=== PATIENT | female | born 1940 | race Caucasian/White ===

== ENCOUNTER 2020-04-30 22:12 | Inpatient (IN) ==
--- NOTE | 2020-04-30 22:36 | ERNOTE ---
Neuro HPI ER Record Presenting Symptoms: weakness, confusion Time Seen by Provider: 04/30/20 22:12 Source: EMS Exam Limitations: clinical condition Immunizations: IMMUNIZATION HX Immunizations Up to Date Yes History of Influenza Vaccine Yes Hx Pneumococcal Vaccination Yes Allergies/Adverse Reactions: Allergies Allergy/AdvReac Type Severity Reaction Status Date / Time levofloxacin [From Levaquin] Allergy Mild Nausea, Verified 04/30/20 22:28 Dizziness, Lightheadedness moxifloxacin HCl Allergy Mild Nausea, Verified 04/30/20 22:28 [From Avelox] Dizziness acetaminophen Allergy Verified 04/30/20 22:28 [From Darvocet-N] amoxicillin [From Augmentin] Allergy Verified 04/30/20 22:28 clavulanic acid Allergy Verified 04/30/20 22:28 [From Augmentin] fructose Allergy Verified 04/30/20 22:28 lactose Allergy Verified 04/30/20 22:28 oxycodone Allergy Verified 04/30/20 22:28 propoxyphene Allergy Verified 04/30/20 22:28 [From Darvocet-N] doxycycline AdvReac Unknown "felt Verified 04/30/20 22:28 loopy" Home Medications: HOME MEDICATIONS Calcium Carbonate/Vitamin D3 [Calcium 500 + D Tablet] 1 ea PO DAILY 06/03/12 [Last Taken Unknown] Multivitamin with Minerals [Multiple Vitamin] 1 ea PO DAILY 06/03/12 [Last Taken Unknown] acetaminophen 325 mg tablet 325 mg PO Q6H PRN 05/17/18 [Last Taken Unknown] etanercept 50 mg/mL (1 mL) subcutaneous syringe 50 mg SUBCUT QWEEK 05/17/18 [Last Taken Unknown] folic acid 1 mg tablet 1 mg PO DAILY 05/17/18 [Last Taken Unknown] methotrexate sodium 2.5 mg tablet 20 mg PO QWEEK tab 05/17/18 [Last Taken Unknown] alendronate 70 mg tablet 70 mg PO QWEEK 09/07/18 [Last Taken Unknown] levothyroxine 125 mcg tablet 125 mcg PO DAILY #90 tab 08/14/19 [Last Taken Unknown] trazodone 150 mg tablet 150 mg PO HS #90 tab 09/20/19 [Last Taken Unknown] lisinopril 20 mg-hydrochlorothiazide 25 mg tablet 1 tab PO DAILY #90 tab 04/08/20 [Last Taken Unknown] albuterol sulfate 90 mcg/actuation aerosol inhaler 2 puff IH Q4H PRN #8.5 g 04/15/20 [Last Taken Unknown] fluticasone propionate 50 mcg/actuation nasal spray,suspension 2 spray LEDY DAILY #16 g 04/15/20 [Last Taken Unknown] trospium 60 mg capsule,extended release 24 hr 60 mg PO DAILY 04/15/20 [Last Taken Unknown] Cefuroxime Axetil [Cefuroxime] 500 mg PO BID #10 tab 04/26/20 [Last Taken Unknown] - History of Present Illness Narrative: Patient brought in by EMS due to report of decreased responsiveness at home. Patient's states he saw her just before she went to bed around 1900 tonight and she was normal. Around 2100 she did come downstairs and was having difficulty with her right arm and dropped some medicine due to not being able to stop attacher with her right arm. She went back upstairs and he got worried, he tried to wake her and could not get any response. He called his daughter who encouraged him to call EMS. Upon arrival EMS was only able to get her to open her eyes and no other response. Onset: upon waking Severity: severe - Character of Deficits New weakness: Present: RUE, RLE Altered sensation: Present: RUE Additional Deficits: Present: impaired speech Baseline Cognition: Present: alert, oriented x 4 Baseline Gait: Present: walks w/o assistance Review of Systems - Narrative Narrative: ROS limited due to patient's mental status and did not come to the hospital - Review of Systems Constitutional: Present: recent illness - Covid Neurological: Present: See HPI Medical History (Last Reviewed 04/30/20 @ 22:27 by Gamaliel Cosme DO) Hernia Vertigo GERD (gastroesophageal reflux disease) Onset Date: Unknown Hypertension Onset Date: Unknown Hypothyroidism Onset Date: Unknown 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 RLS (restless legs syndrome) Onset Date: Unknown Rheumatoid arthritis Onset Date: ~07/17/15 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 Lateral meniscus tear Onset Date: ~06/06/12 right Medial meniscus tear Onset Date: ~06/06/12 right Surgical History: Surgical History (Last Reviewed 04/30/20 @ 22:28 by Gamaliel Cosme DO) History of arthroscopic surgery of shoulder Onset Date: ~2010 right History of colonoscopy Onset Date: ~2008 [facility]- normal History of total bilateral knee replacement (TKR) Onset Date: ~2012 History of tubal ligation Onset Date: ~07/17/15 Family History: Family History (Last Reviewed 04/30/20 @ 22:28 by Gamaliel Cosme DO) Mother Hypertension Hypothyroidism CVA (cerebral vascular accident) Cancer vaginal Social History: (Last Reviewed 04/30/20 @ 22:28 by Gamaleil Cosme DO) Social History: Marital status: household members: spouse Service: No Tobacco: Smoking Status: Never smoker Alcohol: alcohol intake: never Substance Use: substance use type: does not use Dietary Habits: caffeine: Yes Type: coffee Physical Exam - Physical Exam General Appearance: Present: wd/wn, lethargic Eye Exam: Normal inspection: bilateral, PERRL: bilateral, EOMI: bilateral Ears, Nose, Throat: Present: normal ENT inspection Neck: Present: normal inspection, nontender Respiratory: Present: no respiratory distress, normal breath sounds, no accessory muscle use Cardiovascular/Chest: Present: regular rate, rhythm, no murmur Gastrointestinal/Abdominal: Present: normal bowel sounds, nontender, nondistended, soft Extremity Exam: Present: normal inspection, no edema Neurological Exam: Present: other - Patient will open eyes to verbal stimuli. Patient will wiggle left toes and stop attacher left hand. Otherwise does respond to strong stimuli to right foot but does not respond to painful stimuli in right upper extremity Skin Exam: Present: normal color, warm/dry Lymphatic Exam: Present: no adenopathy Zeenat Coma Scale - Assess Eye Opening: To Voice Motor: Obeys Commands Verbal: None - Total Coma Scale Total: 10 Initial Stroke Assessment - Date/Time of assessment Stroke Scale Date: 04/30/20 Stroke Scale Time: 22:30 - NIH Stroke Scale Level of Consciousness: Drowsy LOC Questions (Year and Age): Answers neither correctly LOC Commands (open/close eyes/fist): Performs both correctly Lateral Gaze Paresis: None Visual Field Loss: No visual loss Facial Palsy: Normal movement Right Arm Motor (10 sec hold): No effort, limb falls Left Arm Motor (10 sec hold): No drift Right Leg Motor (5 sec hold): No effort, limb falls Left Leg Motor (5 sec hold): No drift Limb Ataxia (finger/nose heel/mendoza): Untestable Sensory Loss (pinprick arms/legs/face): Severe to total loss Language Aphasia (description/naming/reading): Mute, global aphasia Dysarthria (speech clarity): Untestable Neglect Inattention (visual/tactile/auditory/spatial/person): No neglect Initial Stroke Scale Score:: 14 - Stroke Risk Assessment Stroke Risk Assessment Level: 15-20 Severe Impairment Stroke Inclusion/Exclusion Cri - Inclusion Questions: Yes Onset of symptoms <3 1/2 hours of admission to ETC: No - Exclusion Questions: Major symptoms rapidly improving: No Seizure at onset of stroke: No SBP>185; DBP>110 at time treatment is to begin: No Patient received Heparin or Coumadin within 48 hours: No Patient has elevated PTT or Protime/INR: No - Total NIHSS Score Score:: 14 Progress - Results and Orders Patient's Lab Results:: I have reviewed the patient's lab results. - Vital Signs Patient's Vital Signs:: I have reviewed the patient's vital signs. - EKG EKG #1 EKG: NSR EKG read: Interp. by me - X-Ray X-Ray #1 X-Ray: chest Interpretation: Interp. by me X-ray Comments: Patchy infiltrates throughout bilateral lungs right greater than left - CT/Ultrasound CT/Ultrasound Narrative: CT head without contrast. No evidence of acute intracranial abnormality. - Progress/Reassessment Progress:: Improved Progress Note-Subjective: 04/30/20 23:11 Patient is improving now moving all extremities although weak on the right upper extremity. Patient is now talking and has given her birthdate and 's name. 05/01/20 00:[address] Gutierrez he agrees with admission for Covid pneumonia and anticoagulation due to elevated D-dimer. Departure Clinical Impression: Pneumonia due to 2019-nCoV - Departure Disposition: Still a patient Condition: Good
[2020-04-30 22:52] LABS: Hematocrit 31.2 % (37.0-47.0); Hemoglobin 10.1 gm/dL (12.5-16.0); Mean Cell Volume 96.3 fl (78-100); Mean Corpuscular Hemoglobin 31.2 pg (27-31); Mean Corpuscular Hgb Conc 32.4 g/dl (32-36); Mean Platelet Volume 8.7 fl (8-12.5); Platelet Count 235 K/mm3 (150-450); Red Blood Count 3.24 M/mm3 (4.2-5.4); Red Cell Distribution Width 13.9 % (11.5-14.0)
[2020-04-30 22:57] LABS: Total Cells Counted 100
[2020-04-30 23:04] LABS: Prothrombin Time (Patient) 10.7 Seconds (9.1-10.7)
[2020-04-30 23:06] LABS: Albumin * 2.6 gm/dl (3.4-5.0); Anion Gap 14.5 mmol/L (6.8-13.8); Atypical (Reactive) Lymph 6 % (0-2); BUN/Creatinine Ratio 18.2 (9.0-21.6); Bilirubin, Total 0.6 mg/dL (0.0-1.1); Ca. Corrected For Albumin 9.2 mg/dL (8.4-10.2); Calcium * 8.4 mg/dL (7.9-10.9); Carbon Dioxide 23.7 mmol/L (24-32.6); Eosinophil 1 % (0-3); Lymphocyte 8 % (20-51); Monocyte 3 % (0-9); Neutrophil 82 % (42-75); Neutrophil # 7.4 K/mm3 (1.3-6.0); Platelet Estimate Normal (NORMAL); Potassium 3.2 mmol/L (3.4-4.6); RBC Morphology Normal (NORMAL); Total Protein 7.2 gm/dL (6.2-8.2)
[2020-04-30 23:07] LABS: INR 1.08 INR (0.92-1.08); Partial Thrombolplastin Time 22.6 Seconds (24-32)
[2020-05-01] MEDS ORDERED: ENOXAPARIN SODIUM 100 MG/ML SYRG SC SCH (01:00)
[2020-05-01] MEDS: DEXAMETHASONE SODIUM PHOSPHATE 4 MG/ML VIAL IV SCH (11:17)
[2020-05-01] MEDS ORDERED: ENOXAPARIN SODIUM 80 MG/0.8 ML DISP.SYRIN SC SCH (13:00)
[2020-05-01] MEDS: ENOXAPARIN SODIUM 60 MG/0.6 ML SYRG SC SCH (14:06)
[2020-05-01] MEDS ORDERED: ALBUTEROL SULFATE 200 PUFF INHALER IH PRN (17:26)
[2020-05-01] MEDS ORDERED: ACETAMINOPHEN 325 MG TABLET PO PRN (17:26)
--- NOTE | 2020-05-01 17:26 | HP ---
Chief Complaint - Chief Complaint Date of Service: 05/01/20 Time of Service: 17:26 History of Present Illness: Patient presents to the ER via EMS with right side weakness and altered. She also was recently diagnosed with covid 19 roughtly a week ago. She has been quarantined since dx. CT brain was unremarkable. Pt had significantly elevated d-dimer at >10. SHe endorses right side weakness, difficulty with answering questions, slurred speech. This improved significantly in the ER. She was started on lovenox and decadron. She was requiring low flow o2 via NC to maintain sats. She was admitted for what was thought to be TIA and covid 19 PNA. CTA of chest not ordered due to minimal respiratory symptoms. Rest of her labs were stable and she was afebrile. She was admitted as inpatient. When examined today, she had significant right sided weakness. Left sided facial droop (mild). She had mild expressive aphasia and was having difficulty answering questions. Lovenox was held and she was sent to get an MRI of her brain which came back showing multiple small focal areas of ischemia in left cerebral hemisphere concerning for embolic events. This matched her clinical picture. Lovenox restarted. PT and OT ordered. Allowing for permissive HTN. She is not on a statin or ASA. 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 Lateral meniscus tear Onset Date: ~06/06/12 right Medial meniscus tear Onset Date: ~06/06/12 right Surgical History: Surgical History (Last Reviewed 04/30/20 @ 22:28 by Gamaliel Cosme DO) History of arthroscopic surgery of shoulder Onset Date: ~2010 right History of colonoscopy Onset Date: ~2008 [facility]- normal History of total bilateral knee replacement (TKR) Onset Date: ~2012 History of tubal ligation Onset Date: ~07/17/15 Family History: Family History (Last Reviewed 04/30/20 @ 22:28 by Julia Bradford RN) Mother Cancer vaginal CVA (cerebral vascular accident) Hypothyroidism Hypertension Social History: (Last Reviewed 04/30/20 @ 22:28 by Julia Bradford RN) Social History: Marital status: household members: spouse Service: No Tobacco: Smoking Status: Never smoker Alcohol: alcohol intake: never Substance Use: substance use type: does not use Dietary Habits: caffeine: Yes Type: coffee Review Of Systems (GEN) - Review of Systems Generalized/Overall Review: Present: Weakness. Absent: Chills, Fever EENTM: Present: No Symptoms Reported. Absent: Blurred Vision, Double Vision Respiratory: Present: Cough, Shortness of Breath Cardiac: Present: No Symptoms Reported Abdominal: Absent: Nausea, Vomiting, Abdominal Pain Genitourinary: Present: No Symptoms Reported Musculoskeletal: Present: No Symptoms Reported Neurological: Present: Weakness. Absent: Headache, Numbness Skin: Present: No Symptoms Reported Endocrine: Present: No Symptoms Reported Immunizations: IMMUNIZATION HX Immunizations Up to Date unk History of Influenza Vaccine More Information Required Hx Pneumococcal Vaccination More Information Required Allergies/Adverse Reactions: Allergies Allergy/AdvReac Type Severity Reaction Status Date / Time levofloxacin [From Levaquin] Allergy Mild Nausea, Verified 04/30/20 22:28 Dizziness, Lightheadedness moxifloxacin HCl Allergy Mild Nausea, Verified 04/30/20 22:28 [From Avelox] Dizziness acetaminophen Allergy Verified 04/30/20 22:28 [From Darvocet-N] amoxicillin [From Augmentin] Allergy Verified 04/30/20 22:28 clavulanic acid Allergy Verified 04/30/20 22:28 [From Augmentin] fructose Allergy Verified 04/30/20 22:28 lactose Allergy Verified 04/30/20 22:28 oxycodone Allergy Verified 04/30/20 22:28 propoxyphene Allergy Verified 04/30/20 22:28 [From Darvocet-N] doxycycline AdvReac Unknown "felt Verified 04/30/20 22:28 loopy" Home Medications: HOME MEDICATIONS Calcium Carbonate/Vitamin D3 [Calcium 500 + D Tablet] 1 ea PO DAILY 06/03/12 [Last Taken Unknown] Multivitamin with Minerals [Multiple Vitamin] 1 ea PO DAILY 06/03/12 [Last Taken Unknown] acetaminophen 325 mg tablet 325 mg PO Q6H PRN 05/17/18 [Last Taken Unknown] etanercept 50 mg/mL (1 mL) subcutaneous syringe 50 mg SUBCUT QWEEK 05/17/18 [Last Taken Unknown] folic acid 1 mg tablet 1 mg PO DAILY 05/17/18 [Last Taken Unknown] methotrexate sodium 2.5 mg tablet 20 mg PO QWEEK tab 05/17/18 [Last Taken Unknown] alendronate 70 mg tablet 70 mg PO QWEEK 09/07/18 [Last Taken Unknown] levothyroxine 125 mcg tablet 125 mcg PO DAILY #90 tab 08/14/19 [Last Taken Unknown] trazodone 150 mg tablet 150 mg PO HS #90 tab 09/20/19 [Last Taken Unknown] lisinopril 20 mg-hydrochlorothiazide 25 mg tablet 1 tab PO DAILY #90 tab 04/08/20 [Last Taken Unknown] albuterol sulfate 90 mcg/actuation aerosol inhaler 2 puff IH Q4H PRN #8.5 g 04/15/20 [Last Taken Unknown] fluticasone propionate 50 mcg/actuation nasal spray,suspension 2 spray LEDY DAILY #16 g 04/15/20 [Last Taken Unknown] trospium 60 mg capsule,extended release 24 hr 60 mg PO DAILY 04/15/20 [Last Taken Unknown] Cefuroxime Axetil [Cefuroxime] 500 mg PO BID #10 tab 04/26/20 [Last Taken Unknown] Exam - Exam Vital Signs: Vital Signs - Last Taken Temp 37.2 C 05/01/20 14:34 Pulse 69 05/01/20 14:34 Resp 16 05/01/20 14:34 BP 156/96 H 05/01/20 14:34 Pulse Ox 93 05/01/20 14:34 Constitutional: Present: Alert, Cooperative, Elderly. Absent: Oriented x3 - X1 ( to person) Eye Exam: bilateral eye: normal inspection, PERRL, abnormal EOM - poor tracking, horizontal nystagmus Neck: Present: non-tender, supple Respiratory: Present: lungs clear, normal breath sounds Cardiovascular/Chest: Present: regular rate, rhythm, no murmur Peripheral Pulses: carotid (R): 2+, carotid (L): 2+, dorsalis-pedis (R): 2+, dorsalis-pedis (L): 2+ Abdomen: Present: soft, nontender, nondistended Neurologic: Present: alert, aphasia, facial droop - left, mild, motor weakness - right upper extremity 3+/5 compared to the left including insurance professional 3+ dorsal flexion RLE +babinski on right. Absent: oriented x 3 Appearance: Present: impaired insight Diagnostic Studies: Abnormal Lab Results 04/30/20 04/30/20 04/30/20 Range/Units 22:48 22:48 22:48 RBC 3.24 L (4.2-5.4) M/mm3 Hgb 10.1 L (12.5-16.0) gm/dL Hct 31.2 L (37.0-47.0) % MCH 31.2 H (27-31) pg Neutrophils % (Manual) 82 H (42-75) % Lymphocytes % (Manual) 8 L (20-51) % Neutrophils # (Manual) 7.4 H (1.3-6.0) K/mm3 Lymphocytes # (Manual) 0.7 L (1.5-3.5) k/mm3 Atypic/Reactive Lymphs 6 H (0-2) % ESR 117 H (0-15) mm/hr PTT ([place]) 22.6 L (24-32) Seconds D-Dimer (0.19-0.49) ug/mL Potassium (3.4-4.6) mmol/L Carbon Dioxide (24-32.6) mmol/L Anion Gap (6.8-13.8) mmol/L Random Glucose (70-110) mg/dL Albumin (3.4-5.0) gm/dl 04/30/20 04/30/20 Range/Units 22:48 22:48 RBC (4.2-5.4) M/mm3 Hgb (12.5-16.0) gm/dL Hct (37.0-47.0) % MCH (27-31) pg Neutrophils % (Manual) (42-75) % Lymphocytes % (Manual) (20-51) % Neutrophils # (Manual) (1.3-6.0) K/mm3 Lymphocytes # (Manual) (1.5-3.5) k/mm3 Atypic/Reactive Lymphs (0-2) % ESR (0-15) mm/hr PTT ([place]) (24-32) Seconds D-Dimer Greater than 10 H (0.19-0.49) ug/mL Potassium 3.2 L (3.4-4.6) mmol/L Carbon Dioxide 23.7 L (24-32.6) mmol/L Anion Gap 14.5 H (6.8-13.8) mmol/L Random Glucose 114 H (70-110) mg/dL Albumin 2.6 L (3.4-5.0) gm/dl Laboratory Results WBC 9.0 K/mm3 (4.0-10.5) 04/30/20 22:48 RBC 3.24 M/mm3 (4.2-5.4) L 04/30/20 22:48 Hgb 10.1 gm/dL (12.5-16.0) L 04/30/20 22:48 Hct 31.2 % (37.0-47.0) L 04/30/20 22:48 MCV 96.3 fl (78-100) 04/30/20 22:48 MCH 31.2 pg (27-31) H 04/30/20 22:48 MCHC 32.4 g/dl (32-36) 04/30/20 22:48 RDW 13.9 % (11.5-14.0) 04/30/20 22:48 Plt Count 235 K/mm3 (150-450) 04/30/20 22:48 MPV 8.7 fl (8-12.5) 04/30/20 22:48 Neutrophils % (Manual) 82 % (42-75) H 04/30/20 22:48 Lymphocytes % (Manual) 8 % (20-51) L 04/30/20 22:48 Monocytes % (Manual) 3 % (0-9) 04/30/20 22:48 Eosinophils % (Manual) 1 % (0-3) 04/30/20 22:48 Neutrophils # (Manual) 7.4 K/mm3 (1.3-6.0) H 04/30/20 22:48 Lymphocytes # (Manual) 0.7 k/mm3 (1.5-3.5) L 04/30/20 22:48 Monocytes # (Manual) 0.3 k/mm3 (0.0-1.0) 04/30/20 22:48 Eosinophils # (Manual) 0.1 k/mm3 (0.0-0.7) 04/30/20 22:48 Atypic/Reactive Lymphs 6 % (0-2) H 04/30/20 22:48 Platelet Estimate Normal (NORMAL) 04/30/20 22:48 RBC Morphology Normal (NORMAL) 04/30/20 22:48 ESR 117 mm/hr (0-15) H 04/30/20 22:48 PT 10.7 Seconds (9.1-10.7) 04/30/20 22:48 INR (Anticoag Therapy) 1.08 INR (0.92-1.08) 04/30/20 22:48 PTT ([place]) 22.6 Seconds (24-32) L 04/30/20 22:48 D-Dimer Greater than 10 ug/mL (0.19-0.49) H 04/30/20 22:48 Sodium 138 mmol/L (132-142) 04/30/20 22:48 Plasma Sodium 138 mmol/L (130-142) 04/30/20 22:48 Potassium 3.2 mmol/L (3.4-4.6) L 04/30/20 22:48 Chloride 103 mmol/L (97-106) 04/30/20 22:48 Carbon Dioxide 23.7 mmol/L (24-32.6) L 04/30/20 22:48 Anion Gap 14.5 mmol/L (6.8-13.8) H 04/30/20 22:48 BUN 14 mg/dL (3-23) 04/30/20 22:48 Creatinine 0.77 mg/dL (0.4-1.4) 04/30/20 22:48 Est GFR (Non-Af Amer) 77 mL/min (60-130) D 04/30/20 22:48 BUN/Creatinine Ratio 18.2 (9.0-21.6) 04/30/20 22:48 Random Glucose 114 mg/dL (70-110) H 04/30/20 22:48 Calcium 8.4 mg/dL (7.9-10.9) 04/30/20 22:48 Calcium Adj for Albumin 9.2 mg/dL (8.4-10.2) 04/30/20 22:48 Total Bilirubin 0.6 mg/dL (0.0-1.1) 04/30/20 22:48 AST 41 U/L (0-48) 04/30/20 22:48 ALT 36 U/L (19-67) 04/30/20 22:48 Alkaline Phosphatase 67 U/L (50-170) 04/30/20 22:48 Total Protein 7.2 gm/dL (6.2-8.2) 04/30/20 22:48 Albumin 2.6 gm/dl (3.4-5.0) L 04/30/20 22:48 Assessment/Plan - Assessment/Plan (1) CVA (cerebral vascular accident) 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 Patient started on ASA, Statin, is on lovenox. ST, OT, PT ordered. Will advance diet as cleared. Carrotid and echo will be ordered once stable. Will allow for permissive HTN (systolic to be less than 200). Problem: Acute (2) Pneumonia due to 2019-nCoV Assessment: Minmal o2 requirements. will monitor. decadron started. on lovenox. respiratory stable Problem: Acute (3) HTN (hypertension) Assessment: holding htn meds Problem: Acute (4) Hypothyroid Problem: Acute (5) Rheumatoid arthritis Problem: Acute (6) GERD (gastroesophageal reflux disease) Problem: Acute
[2020-05-01] MEDS: LEVOTHYROXINE SODIUM 125 MCG TABLET PO SCH (18:33)
[2020-05-01] MEDS: CEFUROXIME AXETIL 500 MG TABLET PO SCH (20:35)
[2020-05-01] MEDS: traZODone HCL 150 MG TABLET PO SCH (20:35)
[2020-05-02] MEDS: ENOXAPARIN SODIUM 60 MG/0.6 ML SYRG SC SCH ×2 (02:54→14:20)
[2020-05-02] MEDS: LEVOTHYROXINE SODIUM 125 MCG TABLET PO SCH (07:10)
[2020-05-02] MEDS ORDERED: TROSPIUM 60 MG PO SCH (09:00)
[2020-05-02] MEDS ORDERED: FOLIC ACID 1 MG TABLET PO SCH (09:00)
[2020-05-02] MEDS ORDERED: ASPIRIN 325 MG TABLET.DR PO SCH (09:00)
[2020-05-02] MEDS: CEFUROXIME AXETIL 500 MG TABLET PO SCH ×2 (10:13→21:10)
[2020-05-02] MEDS: DEXAMETHASONE SODIUM PHOSPHATE 4 MG/ML VIAL IV SCH (10:20)
[2020-05-02] MEDS ORDERED: POTASSIUM CHLORIDE 20 MEQ TABLET.SA PO ONE (17:03)
--- NOTE | 2020-05-02 17:25 | PN ---
Subjective - Date and Time Seen Date: 05/02/20 Time: 17:15 Subjective Narrative: Elizabeth is much more alert and oriented today, much more conversant. She still has significant weakness in the right side but much improved compared to the day prior. Right upper extremity strength 3+/5, right lower extremity strength 3+/5. Better control of motion though. She denies pain or headache. She denies shortness of breath. She still has mild expressive aphasia and mild dy sarthria. Her vital signs been stable. Carotid ultrasound showed less than percent plaque buildup bilaterally. Echocardiogram completed but results not back yet. Objective - Review of Systems Generalized/Overall Review: Reports: Weakness. Denies: Chills, Fever EENTM: Denies: Blurred Vision, Double Vision Respiratory: Denies: Cough, Shortness of Breath Cardiac: Denies: Chest Pain, Palpitations Abdominal: Denies: Nausea, Vomiting Musculoskeletal Complaints: Denies: Joint Pain, Back Pain Neurological: Reports: Weakness. Denies: Numbness, Pre-existing Deficit - Vitals Vitals: Last Vital Signs Temp 36.7 C 05/02/20 15:57 Pulse 65 05/02/20 15:57 Resp 16 05/02/20 15:57 BP 116/64 05/02/20 15:57 Pulse Ox 100 05/02/20 15:57 - Exam Constitutional: Present: Alert, Cooperative, Elderly. Absent: Oriented x3 - X2 ENT Exam: Present: hearing grossly normal, other - horizontal nystagmus Neck: Present: non-tender, supple Respiratory: Present: lungs clear, normal breath sounds Cardiovascular/Chest: Present: regular rate, rhythm, no murmur Abdomen: Present: soft, nontender, nondistended Extremity: Present: normal range of motion, non-tender Skin Exam: Present: normal color, warm/dry Neurologic: Present: normal mood/affect, aphasia, facial droop - left sided, motor weakness - Right sided weakness, + babinski Eye contact: Present: cooperative. Absent: normal speech - mild dysrthria, improving Assessment/Plan - Problems/Diagnosis (1) CVA (cerebral vascular accident) Problem: Acute Narrative: Patient has made some progress today compared to yesterday. Patient more conversant and is pleasant to speak with. She does have some mild expressive aphasia and mild dysarthria. She still has significant right-sided weakness and poor rn eligibility strength. She is currently on Lovenox, aspirin, high intensity statin. Carotid Doppler showed less than 50% occlusion bilaterally. Echocardiogram taken today but results are nonacute. Plan is for patient to go to inpatient rehab tomorrow morning. 45 minutes critical care time spent today with patient including reviewing labs, reviewing test ordered, and work on treatment plan. (2) Pneumonia due to 2019-nCoV Problem: Acute Narrative: Patient is stable, vital signs are stable. She is not requiring oxygen administration to maintain sats. No shortness of breath and lungs sound clear on exam. (3) HTN (hypertension) Problem: Acute Narrative: Still holding blood pressure meds lower blood pressures been fine. Will resume at 48 hours if her pressure elevates. (4) Hypothyroid Problem: Acute (5) Rheumatoid arthritis Problem: Acute (6) GERD (gastroesophageal reflux disease) Problem: Acute
[2020-05-02] MEDS ORDERED: ROSUVASTATIN CALCIUM 20 MG TABLET PO SCH (21:00)
[2020-05-02] MEDS: traZODone HCL 150 MG TABLET PO SCH (21:12)
[2020-05-03] MEDS: ENOXAPARIN SODIUM 60 MG/0.6 ML SYRG SC SCH (02:09)
[2020-05-03] MEDS: LEVOTHYROXINE SODIUM 125 MCG TABLET PO SCH (06:42)
[2020-05-03 07:11] LABS: BUN/Creatinine Ratio 23.3 (9.0-21.6); Calcium * 8.3 mg/dL (7.9-10.9); Carbon Dioxide 23.4 mmol/L (24-32.6); Estimated Creat Clear 58.1; Potassium 3.4 mmol/L (3.4-4.6)
--- NOTE | 2020-05-03 08:42 | DS ---
(1) CVA (cerebral vascular accident) Problem: Acute Qualifiers: CVA mechanism: embolism Laterality of affected vessel: left (2) Pneumonia due to 2019-nCoV Problem: Acute (3) HTN (hypertension) Problem: Chronic (4) Hypothyroid Problem: Chronic (5) Rheumatoid arthritis Problem: Chronic (6) GERD (gastroesophageal reflux disease) Problem: Chronic Date of Discharge:: 05/03/20 Hospital Course: 79-year-old female with history of rheumatoid arthritis, hypertension, GERD, hypothyroidism was admitted to the hospital after developing right-sided weakness and difficulty speaking. Patient was previously diagnosed with COVID- 19 roughly 1 week prior to her admission. In the ER she was found to have a D- dimer greater than 10. She was started on Lovenox at a therapeutic dose twice daily. She is also on Decadron. Brain MRI showed multiple small embolic events in her left temporal region, again likely due to her Covid infection. She was started on high-dose statin and aspirin as well. 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 She was confused initially, alert and oriented x1 but this improved throughout her stay. Her strength and coordination is also mildly improved on the right side but she is still 3+/5 in both her upper and lower extremities. 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 She was found on positive Babinski on the right. She still has mild left-sided facial droop. She was much more conversant and oriented today than she was initially upon her admission. Carotid Doppler showed less than 50% occlusion bilaterally. Echocardiogram obtained of her heart but the results were not back yet, will forward to rehab facility once they are available. Her hypertensive medications have been held to allow for permissive hypertension if needed though she has remained within the normal range while being off them. Would not restart them at this time due to her CVA as well as her ranges are within normal limits. We will make sure that they are listed in her drug list in case she becomes hypertensive while at rehab, can be restarted by admitting physician there as they see fit. We will continue her Lovenox but likely will need to be started on Coumadin for another anticoagulant. Patient was evaluated by speech, physical, and occupational therapy while here. She currently is on a thickened, mechanical soft diet. Patient will need physical therapy, Occupational Therapy, and speech therapy continue to inpatient rehab who has accepted her. Lab work was fairly benign upon admission aside from the elevated D-dimer. She is mildly anemic at 10 and 31. She was mildly hypokalemic at 3.2, upon discharge she was back up into a normal range at 3.4. Again her vital signs have been stable and she is been afebrile while here. She is not requiring supplemental oxygen to maintain sats. Procedures Performed: none Results and Findings: Lab Pending Results 04/30/20 22:48: WBC 9.0, RBC 3.24 L, Hgb 10.1 L, Hct 31.2 L, MCV 96.3, MCH 31.2 H, MCHC 32.4, RDW 13.9, Plt Count 235, MPV 8.7, Neutrophils % (Manual) 82 H, Lymphocytes % (Manual) 8 L, Monocytes % (Manual) 3, Eosinophils % (Manual) 1, Neutrophils # (Manual) 7.4 H, Lymphocytes # (Manual) 0.7 L, Monocytes # (Manual) 0.3, Eosinophils # (Manual) 0.1, Atypic/Reactive Lymphs 6 H, Platelet Estimate Normal, RBC Morphology Normal 04/30/20 22:48: ESR 117 H 04/30/20 22:48: PT 10.7, INR (Anticoag Therapy) 1.08, PTT (Lamb) 22.6 L 04/30/20 22:48: Sodium 138, Plasma Sodium 138, Potassium 3.2 L, Chloride 103, Carbon Dioxide 23.7 L, Anion Gap 14.5 H, BUN 14, Creatinine 0.77, Est GFR (Non- Af Amer) 77 D, BUN/Creatinine Ratio 18.2, Random Glucose 114 H, Calcium 8.4, Calcium Adj for Albumin 9.2, Total Bilirubin 0.6, AST 41, ALT 36, Alkaline Phosphatase 67, Total Protein 7.2, Albumin 2.6 L 04/30/20 22:48: D-Dimer Greater than 10 H 05/03/20 06:55: Sodium 142, Plasma Sodium 142, Potassium 3.4, Chloride 108 H, Carbon Dioxide 23.4 L, Anion Gap 14.0 H, BUN 17, Creatinine 0.73, Est GFR (Non- Af Amer) 82, BUN/Creatinine Ratio 23.3 H, Random Glucose 97, Calcium 8.3 Discharge Location: [facility] Disposition: Inpatient Rehab Facility Condition: Stable Discharge Activity: Activity as tolerated Discharge Diet: [facility] soft Referrals: Feli Resendez MD [Primary Care Provider] - Additional Patient Instructions (free text): [facility] Inpatient Rehab- PT, OT, and Speech therapy to evaluate and treat. Prescriptions (Any new or edited meds): Dexamethasone [Decadron] 6 mg PO DAILY #4 tablet Complete Home Medications List: Complete Home Medication List: Calcium Carbonate/Vitamin D3 [Calcium 500-Vit D3 400 Tablet] 1 ea PO DAILY 06/03/12 Multivitamin with Minerals [Multiple Vitamin] 1 ea PO DAILY 06/03/12 acetaminophen 325 mg tablet 325 mg PO Q6H PRN 05/17/18 etanercept 50 mg/mL (1 mL) subcutaneous syringe 50 mg SUBCUT QWEEK 05/17/18 folic acid 1 mg tablet 1 mg PO DAILY 05/17/18 methotrexate sodium 2.5 mg tablet 20 mg PO QWEEK tab 05/17/18 alendronate 70 mg tablet 70 mg PO QWEEK 09/07/18 levothyroxine 125 mcg tablet 125 mcg PO DAILY #90 tab 08/14/19 trazodone 150 mg tablet 150 mg PO HS #90 tab 09/20/19 lisinopril 20 mg-hydrochlorothiazide 25 mg tablet 1 tab PO DAILY #90 tab 04/08/20 albuterol sulfate 90 mcg/actuation aerosol inhaler 2 puff IH Q4H PRN #8.5 g 04/15/20 fluticasone propionate 50 mcg/actuation nasal spray,suspension 2 spray LEDY DAILY #16 g 04/15/20 trospium 60 mg capsule,extended release 24 hr 60 mg PO DAILY 04/15/20 Cefuroxime Axetil [Cefuroxime] 500 mg PO BID #10 tab 04/26/20 Aspirin [Aspirin Enteric Coated] 325 mg PO DAILY tablet. 05/03/20 Dexamethasone [Decadron] 6 mg PO DAILY #4 tablet 05/03/20 Enoxaparin Sodium [Lovenox] 60 mg SC Q12H disp.syrin 05/03/20 Rosuvastatin Calcium [Crestor] 20 mg PO HS tab 05/03/20
[2020-05-03] MEDS ORDERED: DEXAMETHASONE SODIUM PHOSP/PF 10 MG/ML VIAL IV SCH (09:00)
[2020-05-03 11:14] VITALS: BP 132/64
--- NOTE | 2020-05-03 16:19 | ECHO ---
This report is available in the EMR
== END 2020-05-03 10:15 | disposition short-term general hospital (02) | DRG 177 ==
LOC: ER 22:12 → MS 05-01 00:40 → SCU 05-01 09:20
PROVIDERS: ADMIT Family Medicine; ATTEND Family Medicine
DX: E03.9 Hypothyroidism, unspecified; G81.91 Hemiplegia, unspecified affecting right dominant side; R47.01 Aphasia; I10 Essential (primary) hypertension; R29.810 Facial weakness; M06.9 Rheumatoid arthritis, unspecified; J12.89 Other viral pneumonia; I63.9 Cerebral infarction, unspecified; K21.9 Gastro-esophageal reflux disease without esophagitis; R47.1 Dysarthria and anarthria; U07.1 COVID-19